=== PATIENT | male | born 1955 | race Caucasian/White ===

== ENCOUNTER 2022-07-03 14:51 | Day surgery (SDC) | payer MEDICARE, OTHER, SELFPAY ==
--- NOTE | 2022-07-03 16:04 | SUR.HOLD ---
Patient to room 5 for Incision and drainage of wound to inner aspect of Right palm due to dehisence of wound s/p trigger finger release performed on 06/09/2022. at bedside.
--- NOTE | 2022-07-03 16:52 | PM.HP.1 ---
History of Present Illness History of Present Illness Date Patient Seen: 07/03/22 Time Patient Seen: 16:52 Chief complaint: I & D of wound [facility] Social History household members: spouse Meds Home Medications and Allergies Allergies Allergy/AdvReac Type Severity Reaction Status Date / Time No Known Drug Allergies Allergy Verified 07/03/22 16:41
--- NOTE | 2022-07-03 16:54 | PM.HP.1 ---
History of Present Illness History of Present Illness Date Patient Seen: 07/03/22 Time Patient Seen: 16:55 Chief complaint: I & D of wound Narrative: Cas is a pleasant 66-year-old male with past medical history of Parkinson's, Gretchen Charcot tooth, and diabetes who is status post right ring finger trigger finger release on 06/09. Over the last 5 days, home health on several and on has noted wound redness and erythema as well as drainage. His sutures were previously taken out at his 2 week postoperative visit. Today, the wound was open and draining purulent appearing material per home health. For this reason we discussed having him come in for evaluation, possible I and D. he denies any recent nausea, vomiting, diarrhea, fevers, chills or any other constitutional symptoms. He has no other complaints at this time. [facility] Social History household members: spouse Meds Home Medications and Allergies Allergies Allergy/AdvReac Type Severity Reaction Status Date / Time No Known Drug Allergies Allergy Verified 07/03/22 16:41 Review of Systems Review of Systems ROS: Yes All systems reviewed with the patient and are negative except as otherwise documented Exam Narrative Exam Narrative: HEENT: Head atraumatic eyes anicteric moist mucous membranes Cardiovascular: Palpable peripheral pulses extremities are warm and well perfused Respiratory: Breathing comfortably on room air Psychiatric: Appropriate mood and affect Neuro: No acute deficits Musculoskeletal: Exam of the right upper extremity demonstrates 1 cm open previous surgical incision with fibrinous material and some granulation tissue but no overt purulence. Intact tendon seen through the open wound. He is able to flex and extend the finger although he has some contractures leading him to a clenched posture. He did not have significant swelling throughout the remainder of the digit, he does have pain with passive extension. No pain proximally to the incision. No pain to palpation along the volar surface of the ring finger. There is some skin breakdown at the volar surface of the PIP joint. Assessment & Plan Assessment & Plan narrative: Assessment: 66-year-old male with right hand postsurgical wound dehiscence Plan: Discussed treatment options including I and D and antibiotics. As he has had an open wound there is certainly some bacterial colonization however he does not have any gross purulence nor am I concerned for flexor tenosynovitis at this time. Risks and benefits of surgery were discussed again including the risk of infection, damage to internal structures, bleeding, nerve injury, instability, need for revision surgery, blood clots, anesthesia and . No guarantees were made regarding outcomes. Patient expressed understanding and accepted these risks and wished to go forward with surgery and consent was signed.
--- NOTE | 2022-07-03 17:08 | PM.OP.1 ---
Operative Date/Time/Diagnoses Date of procedure: 07/03/22 Time of procedure: 17:08 Pre-op diagnosis: Right ring finger surgical wound dehiscence from trigger finger release Post-op diagnosis: same Procedure & Clinicians Procedure: I and D right ring finger surgical wound Same procedure as scheduled: Yes Indications: Cas is a 66-year-old male who has wound dehiscence of his right ring finger trigger finger release. We discussed I and D and closure of the wound which he wished to go forward with. Surgeon: Isauro Villatoro Click Yes if Unassisted: Yes Operative Notes Findings: Wound dehiscence in fibrinous tissue along with some granulation tissue however no gross purulence or signs of any flexor tenosynovitis Closure Type: primary Prosthetic devices, grafts, tissues, transplants, or devices: None Estimated Blood Loss (mL): 5 Procedure in detail: Patient was seen in the preoperative holding area. His right upper extremity was examined and marked with my initials. Consent form was signed. We agreed to perform wide awake local anesthesia only and no tourniquet for surgery. The right upper extremity was prepped and draped in the standard sterile fashion. A time-out was performed again confirming my initials on the right upper extremity. I began by injectin 5 cc of lidocaine with epinephrine and 5 cc of bupivacaine with epinephrine around the previous surgical site thus getting adequate local anesthesia. At this point it was noted that I was able to gain full extension of his finger. Note he had no catching or locking of the flexor tendons as his A1 sherrie was adequately released previously. The wound edges were debrided with a 15 blade and a small [place]. A using a [place] and a Angiocath, the flexor tendon sheath was then thoroughly irrigated through the previous surgical wound. The wound was then closed with 2-0 nylon. It was dressed with Xeroform and Tegaderm and placed into an extension splint. Complications: none Post-operative Condition: stable Disposition: PACU Plan for aftercare: Dressings may be removed on postoperative day 3. He may perform warm soap and water wash of the wound. He is then been instructed to place a Band-Aid over the wound and to go back into the splint. He may come out of the splint to work on range of motion of the finger at any time.
== END 2022-07-03 16:59 | disposition home or self-care (01) ==
PROVIDERS: PCP Specialist; Referring Provider Orthopaedic Surgery; Visit Provider Orthopaedic Surgery
PROC: (CPT 12020; principal; 2022-07-03 16:00)
DX: T81.32XA Disruption of internal operation (surgical) wound, not elsewhere classified, initial encounter (principal); Z98.890 Other specified postprocedural states
CPT/HCPCS: 12020